=== PATIENT | male | born 1965 | race Two or more races ===

== ENCOUNTER 2018-05-17 17:30 | Emergency (ER) | payer MEDICARE ==
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
[2018-05-17 18:40] LABS: ABS Basophils 0.1 10^3/ul (0-0.2); ABS Eosinophils 0 10^3/ul (0-0.6); ABS Lymphocytes 1.3 10^3/ul (1.0-4.8); ABS Monocytes 0.4 10^3/ul (0-0.8); ABS Neutrophils 5.7 10^3/ul (1.5-7.7); ABS Nucleated RBC 0 10^3/ul; Eosinophil % 0.2 %; Hematocrit 39 % (36-46); Hemoglobin 13.2 g/dL (14.0-18.0); Lymphocyte % 17.5 %; Mean Corpuscular HGB Conc 34 g/dL (31-36); Mean Corpuscular Hemoglobin 32 pg (27-31); Mean Corpuscular Volume 94 fL (80-94); Mean Platelet Volume 9.2 fL (7.4-10.4); Nucleated Red Blood Cells % 0; Platelet Count 232 10^3/uL (150-450); Red Blood Count 4.15 10^6 /uL (4.18-5.48); Red Cell Distribution Width 13 % (10.5-15); White Blood Count 7.4 10^3/uL (3.5-10.8)
[2018-05-17 18:57] LABS: Albumin 4.4 g/dL (3.2-5.2); Albumin/Globulin Ratio 2.1 (1-3); BUN/Creatinine Ratio 14.9 (8-20); Calcium 9.5 mg/dL (8.6-10.3); EGFR African American 102.4 (>60); EGFR Non-African American 84.6 (>60); Globulin 2.1 g/dL (2-4); Potassium 4.8 mmol/L (3.5-5.0); Total Bilirubin 0.4 mg/dL (0.2-1.0); Total Protein 6.5 g/dL (6.4-8.9)
[2018-05-17 19:30] VITALS: BP 129/79
== END 2018-05-17 19:28 | disposition home or self-care (01) ==
LOC: ED 17:30
DX: J32.9 Chronic sinusitis, unspecified (principal); J30.2 Other seasonal allergic rhinitis; M50.321 Other cervical disc degeneration at C4-C5 level; E11.9 Type 2 diabetes mellitus without complications; Z79.84 Long term (current) use of oral hypoglycemic drugs
CPT/HCPCS: 36415; 70450; 70486; 80053; 85025; 99282

== ENCOUNTER 2018-05-19 16:49 | Emergency (ER) | payer MEDICARE ==
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
[2018-05-19] MEDS ORDERED: ALPRAZolam TAB* 0.5 MG PO ONE (20:18)
[2018-05-19 21:00] VITALS: BP 122/76
== END 2018-05-19 20:59 | disposition home or self-care (01) ==
LOC: ED 16:49
DX: E11.9 Type 2 diabetes mellitus without complications (principal); F41.9 Anxiety disorder, unspecified; R51 Headache; H53.8 Other visual disturbances
CPT/HCPCS: 99282; A9270-GY